=== PATIENT | female | born 1960 | race Caucasian/White ===

== ENCOUNTER 2020-10-17 14:25 | Outpatient (CLI) | payer MEDICARE, MEDICAID, SELFPAY | END 2020-10-17 14:26 | disposition home or self-care (01) | LOC: ANHCOVIDVC 14:25 | PROVIDERS: PCP Family Medicine | DX: Z23 Encounter for immunization (principal) | CPT/HCPCS: 0001A; 91300 ==

== ENCOUNTER 2020-11-07 14:13 | Outpatient (CLI) | payer MEDICARE, MEDICAID, SELFPAY | END 2020-11-07 14:14 | disposition home or self-care (01) | LOC: ANHCOVIDVC 14:13 | PROVIDERS: PCP Family Medicine | DX: Z23 Encounter for immunization (principal) | CPT/HCPCS: 0002A; 91300 ==

== ENCOUNTER 2022-05-28 10:06 | Outpatient (RCR) | payer MEDICARE, MEDICAID, SELFPAY | END 2022-08-12 08:37 | disposition home or self-care (01) | LOC: ANHDMC 10:06 | PROVIDERS: PCP Family Medicine; Visit Provider Nurse Practitioner | DX: E11.65 Type 2 diabetes mellitus with hyperglycemia (principal); Z71.89 Other specified counseling | CPT/HCPCS: G0108 ==